=== PATIENT | female | born 1980 | race American Indian/Alaskan Native ===

== ENCOUNTER 2017-01-02 05:52 | Emergency (ER) | payer MEDICAID ==
[2017-01-02 06:15] VITALS: BP 116/69
[2017-01-02] MEDS ORDERED: DECADRON IM ONE (08:02)
[2017-01-02] MEDS ORDERED: BENADRYL PO ONE (08:02)
[2017-01-02] MEDS ORDERED: PEPCID PO ONE (08:02)
--- NOTE | 2017-01-02 09:07 | Emergency Department Report ---
HPI - General Chief Complaint: Eye Problems Time Seen by Provider: 01/02/17 08:00 - HPI HPI: 36-year old female presents today with swelling to her left eye 2 days. Patient states the swelling worsened this morning. Positive for mild irritation and itching of the eye but states it mostly involving the eyelid. Denies injury or trauma. Tried Benadryl without much relief, last dose at 5:30 AM. Positive for green crusting this morning. Denies visual changes. Patient states that she has 2 very pruritic lesions on her back. Denies drainage or bleeding. Denies fever, chills, nausea, vomiting, chest pain, shortness of breath, abdominal pain. Denies difficulty in breathing or difficulty swallowing. ED Past Medical Hx - Past Medical History Previous Medical History?: Yes Hx GERD: Yes Additional medical history: IBS - Surgical History Additional Surgical History: d&c, tubal ligation - Social History Smoking Status: Never Smoker Substance Use Type: Alcohol - Medications Home Medications: Home Medications Medication Instructions Recorded Confirmed Last Taken Type Ibuprofen [Motrin] 800 mg PO TID PRN #30 tab 09/04/13 Unknown Rx metroNIDAZOLE [Flagyl TAB] 1 tab PO BID #20 tablet 09/04/13 Unknown Rx Diphenhydramine HCl [Benadryl 25 mg PO Q6H #20 tablet 01/02/17 Unknown Rx Allergy TAB] Famotidine [Pepcid] 40 mg PO QHS #20 tablet 01/02/17 Unknown Rx Prednisone [predniSONE 10 mg 10 mg PO .TAPER #1 tab.ds.pk 01/02/17 Unknown Rx (6-Day Pack, 21 Tabs)] Sulfamethoxazole/Trimethoprim 1 each PO BID #14 tablet 01/02/17 Unknown Rx [Bactrim DS TAB] ED Review of Systems ROS: Stated complaint: SWOLLEN LF EYE Other details as noted in HPI Constitutional: denies: chills, fever, malaise Eyes: eye discharge, other (eye swelling). denies: eye pain, vision change ENT: denies: ear pain, throat pain, congestion Respiratory: denies: cough, shortness of breath, wheezing Cardiovascular: denies: chest pain, palpitations Endocrine: no symptoms reported Gastrointestinal: denies: abdominal pain, nausea, vomiting Skin: rash, pruritus Neurological: denies: headache, weakness Physical Exam - Physical Exam Vital Signs: Vital Signs 01/02/17 06:10 Temperature 98.7 F Pulse Rate 77 Respiratory 20 Rate Blood Pressure 116/69 O2 Sat by Pulse 98 Oximetry Physical Exam: GENERAL: The patient is well-developed and well-nourished. Patient is in NAD. SKIN: 2 erythematous, pruritic, nontender, blanching, slightly raised, 4 cm in diameter regions noted over her back. No entry point noted. No drainage, fluctuance or bleeding noted. HEAD: Normocephalic. Atraumatic. EYES: Extraocular motions are intact, not painful. PERRL. No proptosis noted. No conjunctival injection noted bilaterally. Positive for periorbital swelling of the left eye, no erythema or tenderness to palpation noted. EARS: External auditory canals and tympanic membranes clear; hearing grossly intact. NOSE: Normal nasal mucosa with no nasal discharge. THROAT: No erythema, swelling or exudates. NECK: Supple, nontender, without lymphadenopathy. CHEST/LUNGS: Clear to auscultation throughout. HEART/CARDIOVASCULAR: Regular rate and rhythm. ABDOMEN: Abdomen is soft, nontender. No guarding or rebound tenderness. EXTREMITIES: Peripheral pulses intact. Capillary refill less than 2 seconds. NEURO: Alert and oriented x 3. Normal gait. VISUAL ACUITY R 20/20 L 20/20 B 20/20 ED Course Vital Signs 01/02/17 06:10 Temperature 98.7 F Pulse Rate 77 Respiratory 20 Rate Blood Pressure 116/69 O2 Sat by Pulse 98 Oximetry ED Medical Decision Making - Lab Data Vital Signs 01/02/17 06:10 Temperature 98.7 F Pulse Rate 77 Respiratory 20 Rate Blood Pressure 116/69 O2 Sat by Pulse 98 Oximetry - Medical Decision Making 36-year-old female presents today with 2 pruritic regions on her back and left sided periorbital edema. Physical exam reveals intact extraocular motions without pain, no erythema or tenderness to palpation left eye, no proptosis and normal visual acuity. The patient was given a Decadron, Benadryl, Pepcid and reports symptomatic relief. Patient has been provided with a referral for ophthalmology. Consulted with Dr. Valdez, who recommended sending patient home on Bactrim with ophthalmology referral. Patient is in no acute distress at this time. She will be discharged home and is encouraged to follow up with a primary care provider. She will be sent home on Bactrim, Benadryl, Pepcid and steroid pack and is encouraged to return to the emergency room for any worsening symptoms. Critical care attestation.: If time is entered above; I have spent that time in minutes in the direct care of this critically ill patient, excluding procedure time. ED Disposition Clinical Impression: Periorbital edema Allergic reaction Qualifiers: Encounter type: initial encounter Qualified Code(s): T78.40XA - Allergy, unspecified, initial encounter Disposition: DISCHARGED TO HOME OR SELFCARE Is pt being admited?: No Does the pt Need Aspirin: No Condition: Stable Instructions: Allergies (ED), Anaphylaxis (ED) Additional Instructions: Follow-up with primary care provider. Return to emergency department if symptoms worsen. Prescriptions: Famotidine [Pepcid] 40 mg PO QHS #20 tablet Diphenhydramine HCl [Benadryl Allergy TAB] 25 mg PO Q6H #20 tablet Prednisone [predniSONE 10 mg (6-Day Pack, 21 Tabs)] 10 mg PO .TAPER #1 tab.ds.pk Sulfamethoxazole/Trimethoprim [Bactrim DS TAB] 1 each PO BID #14 tablet Referrals: DAVID MILLS MD [Primary Care Provider] - 3-5 Days RAMESH VALDEZ MD [Staff Physician] - 3-5 Days [facility] [Outside] - 3-5 Days Forms: Work/School Release Form(ED) Time of Disposition: 09:27
== END 2017-01-02 09:39 | disposition home or self-care (01) ==
LOC: ED 05:52
DX: T78.40XA Allergy, unspecified, initial encounter (principal); H05.222 Edema of left orbit; K21.9 Gastro-esophageal reflux disease without esophagitis; K58.9 Irritable bowel syndrome, unspecified; Z98.51 Tubal ligation status
CPT/HCPCS: 96372; 99283; J1100

== ENCOUNTER 2017-09-12 19:56 | Emergency (ER) | payer MEDICAID, OTHER ==
[2017-09-12 21:21] LABS: Basophils % (Auto) 0.5 % (0.0-1.8); Eosinophils % (Auto) 1.2 % (0.0-4.3); Hematocrit 36.8 % (30.3-42.9); Hemoglobin 12.7 gm/dl (10.1-14.3); Mean Corpuscular HGB Conc 35 % (30-34); Mean Corpuscular Hemoglobin 31 pg (28-32); Mean Corpuscular Volume 91 fl (79-97); Platelet Count 280 K/mm3 (140-440); Red Blood Count 4.04 M/mm3 (3.65-5.03); Red Cell Distribution Width 14.3 % (13.2-15.2); White Blood Count 6.8 K/mm3 (4.5-11.0)
[2017-09-12 21:39] LABS: Anion Gap 17 mmol/L; BUN/Creatinine Ratio 11; Blood Urea Nitrogen 9 mg/dL (7-17); Calcium 9.1 mg/dL (8.4-10.2); Carbon Dioxide 25 mmol/L (22-30); Glucose 88 mg/dL (65-100); Potassium 3.8 mmol/L (3.6-5.0); Sodium 137 mmol/L (137-145)
[2017-09-13] MEDS ORDERED: NACL 0.9% 1000 ML 1,000 ML IV ONE (02:16)
[2017-09-13] MEDS ORDERED: MORPHINE IV ONE (02:17)
[2017-09-13] MEDS ORDERED: ZOFRAN ONE (02:46)
[2017-09-13] MEDS ORDERED: MORPHINE ONE (02:46)
[2017-09-13] MEDS ORDERED: NACL ONE (03:24)
--- NOTE | 2017-09-13 04:42 | Cat Scan Report ---
FINAL REPORT EXAM: CT NECK W CON HISTORY: facial and neck swelling TECHNIQUE: Routine axial imaging was obtained of the soft tissues of the neck extending to the skull base to the thoracic inlet following the intravenous injection of 100 cc of Omnipaque 300. Sagittal and coronal reconstructions were reviewed. FINDINGS: There is minimal reticulation of the subcutaneous fat overlying the right side of the face suggesting mild edema. The parotid and submandibular glands appear normal. There is no evidence of lymphadenopathy in any compartment of the neck. The vascular structures enhance normally bilaterally. The thyroid gland is normal in size and reveals 4.5 millimeter low-attenuation lesion in the left thyroid lobe. The airway appears normal. The skullbase is unremarkable. The sinuses reveal minimal mucosal thickening in the left maxillary sinus. The retropharyngeal space appears normal. The lung apices are clear. The skeletal structures are unremarkable. IMPRESSION: Very mild reticulation of the subcutaneous fat along the right side of the face suggesting mild cellulitis. 4.5 millimeter low-attenuation lesion in the left thyroid lobe. Further evaluation is recommend with outpatient thyroid sonography.
[2017-09-13] MEDS ORDERED: CLEOCIN 900 MG/50 mL 900 MG/50 ML BAG IV ONE (05:21)
[2017-09-13 05:39] VITALS: BP 106/64
--- NOTE | 2017-09-13 05:54 | Emergency Department Report ---
HPI - General Chief Complaint: Chest Pain Time Seen by Provider: 09/13/17 01:43 - HPI HPI: This is a 36-year-old female presents to the emergency department with complaint of some pain and swelling to the bilateral sides of her face. She thinks it could be secondary to some wisdom teeth that need to be removed. However this pain appears to be reading towards her had and towards her chest. She denies any fever, vision change, slurred speech, shortness of breath, nausea, vomiting or diaphoresis. She has not taken anything for her symptoms and presentation. She has a history of IBS. She does not currently have a primary care physician. Recent travel or sick contacts at home. All of the symptoms began this morning. ED Past Medical Hx - Past Medical History Previous Medical History?: No Hx GERD: Yes Additional medical history: IBS - Surgical History Past Surgical History?: Yes Additional Surgical History: d&c, tubal ligation - Social History Smoking Status: Never Smoker Substance Use Type: Alcohol - Medications Home Medications: Home Medications Medication Instructions Recorded Confirmed Last Taken Type Ibuprofen [Motrin] 800 mg PO TID PRN #30 tab 09/04/13 Unknown Rx metroNIDAZOLE [Flagyl TAB] 1 tab PO BID #20 tablet 09/04/13 Unknown Rx Diphenhydramine HCl [Benadryl 25 mg PO Q6H #20 tablet 01/02/17 Unknown Rx Allergy TAB] Famotidine [Pepcid] 40 mg PO QHS #20 tablet 01/02/17 Unknown Rx Sulfamethoxazole/Trimethoprim 1 each PO BID #14 tablet 01/02/17 Unknown Rx [Bactrim DS TAB] HYDROcodone/ACETAMINOPHEN [[place] 1 each PO Q6H PRN #10 tablet 09/13/17 Unknown Rx 5-325 Tablet] Sulfamethoxazole/Trimethoprim 1 each PO BID #14 tablet 09/13/17 Unknown Rx [Bactrim DS TAB] Cetirizine HCl [ZyrTEC] 10 mg PO QAM #5 capsule 09/15/17 Unknown Rx Prednisone [predniSONE 10 mg 10 mg PO .TAPER #1 tab.ds.pk 09/15/17 Unknown Rx (6-Day Pack, 21 Tabs)] diphenhydrAMINE [Benadryl CAP] 50 mg PO BID PRN #12 capsule 09/15/17 Unknown Rx ED Review of Systems ROS: Stated complaint: CHEST PAIN Other details as noted in HPI Comment: All other systems reviewed and negative Constitutional: denies: chills, fever Eyes: denies: eye pain, eye discharge, vision change ENT: throat pain, dental pain, other (facial swelling) Respiratory: denies: cough, shortness of breath, wheezing Cardiovascular: chest pain. denies: palpitations Gastrointestinal: denies: abdominal pain, nausea, diarrhea Genitourinary: denies: urgency, dysuria, discharge Musculoskeletal: denies: back pain, joint swelling, arthralgia Skin: denies: rash, lesions Neurological: headache. denies: weakness, paresthesias Physical Exam - Physical Exam Vital Signs: Vital Signs 09/12/17 09/13/17 09/13/17 20:20 00:01 03:04 Temperature 98.9 F 98.7 F Pulse Rate 98 H 107 H Respiratory 18 18 Rate Blood Pressure 117/72 124/70 Blood Pressure [Right] O2 Sat by Pulse 100 100 Oximetry 09/13/17 09/13/17 05:25 05:32 Temperature 99.3 F Pulse Rate 99 H Respiratory 20 18 Rate Blood Pressure Blood Pressure 106/64 [Right] O2 Sat by Pulse 98 100 Oximetry Physical Exam: GENERAL: The patient is well-developed well-nourished. HENT: Normocephalic. Atraumatic. Patient has moist mucous membranes. Oropharynx is clear. EYES: Extraocular motions are intact. Pupils equal reactive to light bilaterally. NECK: Supple. Trachea is midline. No obvious palpable or visible lymphadenopathy. CHEST/LUNGS: Clear to auscultation. There is no respiratory distress noted. HEART/CARDIOVASCULAR: Regular. There is no tachycardia. There is no gallop rub or murmur. ABDOMEN: Abdomen is soft, nontender. Patient has normal bowel sounds. There is no abdominal distention. SKIN: There is some swelling to the bilateral face around the area of the parotid glands. No obvious erythema, lesions, weeping or drainage. NEURO: The patient is awake, alert, and oriented. The patient is cooperative. The patient has no focal neurologic deficits. The patient has normal speech. MUSCULOSKELETAL: There is no tenderness or deformity. There is no limitation range of motion. There is no evidence of acute injury. ED Course Vital Signs 09/12/17 09/13/17 09/13/17 20:20 00:01 03:04 Temperature 98.9 F 98.7 F Pulse Rate 98 H 107 H Respiratory 18 18 Rate Blood Pressure 117/72 124/70 Blood Pressure [Right] O2 Sat by Pulse 100 100 Oximetry 09/13/17 09/13/17 05:25 05:32 Temperature 99.3 F Pulse Rate 99 H Respiratory 20 18 Rate Blood Pressure Blood Pressure 106/64 [Right] O2 Sat by Pulse 98 100 Oximetry ED Medical Decision Making - Lab Data Result diagrams: 09/12/17 21:08 09/12/17 21:08 - EKG Data -: EKG Interpreted by Me EKG shows normal: sinus rhythm, axis, intervals, QRS complexes, ST-T waves Rate: tachycardia (103 bpm) - EKG Data When compared to previous EKG there are: previous EKG unavailable Interpretation: normal EKG (with mild tachycardia at 103 bpm) - Radiology Data Radiology results: report reviewed, image reviewed interpreted by me: Chest x-ray does not show any acute process. There are no pleural effusions, obvious pneumonia and there is no pneumothorax. XAM: CT NECK W CON HISTORY: facial and neck swelling TECHNIQUE: Routine axial imaging was obtained of the soft tissues of the neck extending to the skull base to the thoracic inlet following the intravenous injection of 100 cc of Omnipaque 300. Sagittal and coronal reconstructions were reviewed. FINDINGS: There is minimal reticulation of the subcutaneous fat overlying the right side of the face suggesting mild edema. The parotid and submandibular glands appear normal. There is no evidence of lymphadenopathy in any compartment of the neck. The vascular structures enhance normally bilaterally. The thyroid gland is normal in size and reveals 4.5 millimeter low-attenuation lesion in the left thyroid lobe. The airway appears normal. The skullbase is unremarkable. The sinuses reveal minimal mucosal thickening in the left maxillary sinus. The retropharyngeal space appears normal. The lung apices are clear. The skeletal structures are unremarkable. IMPRESSION: Very mild reticulation of the subcutaneous fat along the right side of the face suggesting mild cellulitis. 4.5 millimeter low-attenuation lesion in the left thyroid lobe. Further evaluation is recommend with outpatient thyroid sonography. Transcribed By: NING Dictated By: BI JONAS MD Electronically Authenticated By: BI JONAS MD Signed Date/Time: 09/13/17 0040 - Medical Decision Making 36-year-old female presents with some swelling to the bilateral face just in front of and inferior to the ears, sort of over the parotid gland region. Labs are mostly unremarkable. CT was done to rule out abscess or malignancy and it showed possibly some concern for a mild cellulitis. Vital signs stable including being afebrile. Patient will be treated with some antibiotics and encouraged to follow up with the primary care. She'll return to the ER with any worsening of her symptoms or any acute distress. No drooling or trismus. No signs of sepsis. - Differential Diagnosis cellulitis, angioedema, complement deficiency, lupus Critical Care Time: No Critical care attestation.: If time is entered above; I have spent that time in minutes in the direct care of this critically ill patient, excluding procedure time. ED Disposition Clinical Impression: Facial swelling, Facial pain Cellulitis Qualifiers: Site of cellulitis: face Qualified Code(s): L03.211 - Cellulitis of face Disposition: TO HOME OR SELFCARE Is pt being admited?: No Condition: Stable Instructions: Chest Pain (ED), Cellulitis (ED) Additional Instructions: Please follow up with a primary care physician in the next few days. Return to the emergency Department with any worsening of your symptoms or any acute distress. You have been prescribed a medication that is sedating and therefore should not be taken prior to driving, working, and responsible for children and in no way should be mixed with alcohol of any quantity. Prescriptions: HYDROcodone/ACETAMINOPHEN [[place] 5-325 Tablet] 1 each PO Q6H PRN #10 tablet PRN Reason: Pain Sulfamethoxazole/Trimethoprim [Bactrim DS TAB] 1 each PO BID #14 tablet Referrals: DAVID MILLS MD [Primary Care Provider] - 3-5 Days KAMILA LEON MD [Staff Physician] - 3-5 Days [facility] [Outside] - [facility] - [facility]5 Days Time of Disposition: 05:58
--- NOTE | 2017-09-13 07:45 | XRay Report ---
AP CHEST: HISTORY: chest pain AP view of the chest demonstrates a normal mediastinal and cardiac contour with clear lungs and normal bony and soft tissue structures. IMPRESSION: Unremarkable AP chest.
== END 2017-09-13 06:16 | disposition home or self-care (01) ==
LOC: ED 19:56
DX: L03.211 Cellulitis of face (principal); K21.9 Gastro-esophageal reflux disease without esophagitis; Z98.51 Tubal ligation status
CPT/HCPCS: 36415; 70491; 71010; 80048; 81025; 84484; 85025; 87116; 87430; 93005; 93010; 96361; 96365; 96375; 99285; J2270; J7030; Q9967; J2405

== ENCOUNTER 2017-09-15 07:48 | Emergency (ER) | payer OTHER ==
[2017-09-15 08:24] VITALS: BP 114/69
[2017-09-15] MEDS ORDERED: BENADRYL IV ONE (11:15)
[2017-09-15] MEDS ORDERED: TORADOL IV ONE (11:16)
--- NOTE | 2017-09-15 11:19 | Emergency Department Report ---
HPI - General Chief Complaint: Sore Throat Time Seen by Provider: 09/15/17 11:05 - HPI HPI: Patient here reports that she was seen here 4 days ago for the same problem complain and neck and throat swelling. She says she was diagnosis: The face, cellulitis to throat pain and was prescribed hydrocodone and Bactrim. Patient states that she has not completed prescription and she is returning today because she is having neck and throat swelling. Denies any shortness of breath. Denies any cough or chest pain. Denies any wheezing or stridor. Patient's that she did not take her temperature but she feels like she has a fever. She said her pain is 10 out of 10 and achy. She reports that pain medication help her pain but he didn't take the solid way. ED Past Medical Hx - Past Medical History Previous Medical History?: Yes Hx GERD: Yes Additional medical history: IBS, Throat and neck pain, Abnormal cervical cells - Surgical History Past Surgical History?: Yes Additional Surgical History: d&c, tubal ligation - Family History Family history: no significant, hypertension - Social History Smoking Status: Never Smoker Substance Use Type: Alcohol, Prescribed Other Social History: Lives with family - Medications Home Medications: Home Medications Medication Instructions Recorded Confirmed Last Taken Type Ibuprofen [Motrin] 800 mg PO TID PRN #30 tab 09/04/13 Unknown Rx metroNIDAZOLE [Flagyl TAB] 1 tab PO BID #20 tablet 09/04/13 Unknown Rx Diphenhydramine HCl [Benadryl 25 mg PO Q6H #20 tablet 01/02/17 Unknown Rx Allergy TAB] Famotidine [Pepcid] 40 mg PO QHS #20 tablet 01/02/17 Unknown Rx Sulfamethoxazole/Trimethoprim 1 each PO BID #14 tablet 01/02/17 Unknown Rx [Bactrim DS TAB] HYDROcodone/ACETAMINOPHEN [[place] 1 each PO Q6H PRN #10 tablet 09/13/17 Unknown Rx 5-325 Tablet] Sulfamethoxazole/Trimethoprim 1 each PO BID #14 tablet 09/13/17 Unknown Rx [Bactrim DS TAB] Cetirizine HCl [ZyrTEC] 10 mg PO QAM #5 capsule 09/15/17 Unknown Rx Prednisone [predniSONE 10 mg 10 mg PO .TAPER #1 tab.ds.pk 09/15/17 Unknown Rx (6-Day Pack, 21 Tabs)] diphenhydrAMINE [Benadryl CAP] 50 mg PO BID PRN #12 capsule 09/15/17 Unknown Rx ED Review of Systems ROS: Stated complaint: NECK AND THROAT SWOLLEN Other details as noted in HPI Comment: All other systems reviewed and negative Constitutional: denies: chills ENT: throat pain, other (neck swelling/Facial swelling). denies: ear pain, dental pain, congestion Respiratory: no symptoms reported Cardiovascular: denies: chest pain, palpitations, dyspnea on exertion, orthopnea , edema, syncope, paroxysmal nocturnal dyspnea Gastrointestinal: denies: abdominal pain, nausea, vomiting, diarrhea, constipation, hematemesis Genitourinary: denies: urgency, dysuria, frequency, hematuria, discharge Musculoskeletal: arthralgia. denies: back pain, joint swelling, myalgia Skin: denies: rash Neurological: denies: headache, numbness, paresthesias, confusion Physical Exam - Physical Exam Vital Signs: Vital Signs 09/15/17 08:18 Temperature 99.5 F Pulse Rate 66 Respiratory 18 Rate Blood Pressure 114/69 O2 Sat by Pulse 100 Oximetry General: This is a 36-year-old female well-nourished well-developed in no acute distress Physical Exam: Head: Normocephalic, atraumatic, no abrasion, no bruising and no contusion. Eyes: Biateral pupils equal and reactive to light, bilateral EOM intact.. Bilateral conjunctival and sclera without injection, normal accommodation. No nystagmus Mouth: Moist, no pharyngeal exudate or erythema. No peritonsillar abscess. No tonsillar enlargement. Tongue is normal. Uvula is midline. No trismus. Mild facial swelling. Lips without swelling. No facial erythema noted Neurological: GCS at 15, Pt is alert and oriented 3 speech is clear period. Bilateral hand mechanics supervisor strong and equal. Normal gait. Negative Romberg and no pronator drift. Normal Reflexes. No motor or sensory deficit Neck: Supple, No Cervical adenopathy, full range of motion and no C-spine tenderness. No swelling or tracheal deviation normal reflexes Back: No vertebral tenderness, no paraspinal tenderness. Ambulates without any difficulties. Cardiovascular: S1, S2. Regular rate and rhythm. No murmur. Capillary refill is less then 3 seconds. Lungs: Clear to auscultate bilaterally. No rhonchi, wheezes or rales. No chest wall tenderness, no stridor and normal work of breathing MSK: Strength 5/5 in all extremities. No joint deformity or crepitus. Normal inspection. Full range of motion to all extremities Extremities: No clubbing, cyanosis or edema. +2 pulses. No neurovascular compromise Skin: Clean, dry and intact. No rash or lesions. ED Course Vital Signs 09/15/17 08:18 Temperature 99.5 F Pulse Rate 66 Respiratory 18 Rate Blood Pressure 114/69 O2 Sat by Pulse 100 Oximetry - Reevaluation(s) Reevaluation #1: 09/15/17 13:22 Patient had Solu-Medrol 125 mg IV, Toradol 30 mg IV and Benadryl 50 mg IV and she says she feels better. She cannot identify anything this new nerve in her vitamin debts causing her to have facial swelling. CTA of the neck was normal ED Medical Decision Making - Lab Data Result diagrams: 09/15/17 11:34 09/15/17 11:34 Lab Results 09/15/17 09/15/17 09/15/17 Range/Units 11:34 11:34 11:34 WBC 4.7 (4.5-11.0) K/mm3 RBC 4.07 (3.65-5.03) M/mm3 Hgb 12.3 (10.1-14.3) gm/dl Hct 37.6 (30.3-42.9) % MCV 92 (79-97) fl MCH 30 (28-32) pg MCHC 33 (30-34) % RDW 14.4 (13.2-15.2) % Plt Count 245 (140-440) K/mm3 Lymph % (Auto) 35.0 (13.4-35.0) % Ellis % (Auto) 8.9 H (0.0-7.3) % Eos % (Auto) 0.1 (0.0-4.3) % Baso % (Auto) 0.5 (0.0-1.8) % Lymph # 1.6 (1.2-5.4) K/mm3 Ellis # 0.4 (0.0-0.8) K/mm3 Eos # 0.0 (0.0-0.4) K/mm3 Baso # 0.0 (0.0-0.1) K/mm3 Seg Neutrophils % 55.5 (40.0-70.0) % Seg Neutrophils # 2.6 (1.8-7.7) K/mm3 Sodium 136 L (137-145) mmol/L Potassium 4.1 (3.6-5.0) mmol/L Chloride 99.3 (98-107) mmol/L Carbon Dioxide 24 (22-30) mmol/L Anion Gap 17 mmol/L BUN 8 (7-17) mg/dL Creatinine 0.8 (0.7-1.2) mg/dL Estimated GFR > 60 ml/min BUN/Creatinine Ratio 10 % Glucose 75 (65-100) mg/dL Calcium 8.3 L (8.4-10.2) mg/dL Total Bilirubin 0.20 (0.1-1.2) mg/dL Direct Bilirubin < 0.2 (0-0.2) mg/dL Indirect Bilirubin 0.0 mg/dL AST 19 (5-40) units/L ALT 11 (7-56) units/L Alkaline Phosphatase 54 (35-129) units/L C-Reactive Protein 0.70 (0.00-1.30) mg/dL Total Protein 7.3 (6.3-8.2) g/dL Albumin 3.7 L (3.9-5) g/dL Albumin/Globulin Ratio 1.0 % HCG, Qual (Negative) 09/15/17 Range/Units 11:34 WBC (4.5-11.0) K/mm3 RBC (3.65-5.03) M/mm3 Hgb (10.1-14.3) gm/dl Hct (30.3-42.9) % MCV (79-97) fl MCH (28-32) pg MCHC (30-34) % RDW (13.2-15.2) % Plt Count (140-440) K/mm3 Lymph % (Auto) (13.4-35.0) % Ellis % (Auto) (0.0-7.3) % Eos % (Auto) (0.0-4.3) % Baso % (Auto) (0.0-1.8) % Lymph # (1.2-5.4) K/mm3 Ellis # (0.0-0.8) K/mm3 Eos # (0.0-0.4) K/mm3 Baso # (0.0-0.1) K/mm3 Seg Neutrophils % (40.0-70.0) % Seg Neutrophils # (1.8-7.7) K/mm3 Sodium (137-145) mmol/L Potassium (3.6-5.0) mmol/L Chloride (98-107) mmol/L Carbon Dioxide (22-30) mmol/L Anion Gap mmol/L BUN (7-17) mg/dL Creatinine (0.7-1.2) mg/dL Estimated GFR ml/min BUN/Creatinine Ratio % Glucose (65-100) mg/dL Calcium (8.4-10.2) mg/dL Total Bilirubin (0.1-1.2) mg/dL Direct Bilirubin (0-0.2) mg/dL Indirect Bilirubin mg/dL AST (5-40) units/L ALT (7-56) units/L Alkaline Phosphatase (35-129) units/L C-Reactive Protein (0.00-1.30) mg/dL Total Protein (6.3-8.2) g/dL Albumin (3.9-5) g/dL Albumin/Globulin Ratio % HCG, Qual Negative (Negative) - Radiology Data Radiology results: report reviewed CTA neck with normal results. Please refer to report for detailed information - Medical Decision Making ED course: She presents to the emergency room today with complaints of facial swelling and throat swelling with pain at 10 out of 10. She was seen here on for similar problems that she was placed on Bactrim DS [place] 5. She says she did not take the Bactrim or did not complete it because she didn't feel like she needs it. Physical findings for mild facial swelling bilaterally without any signs of cellulitis. Exam was normal without any peritonsillar abscess and her airways patent. Neck exam is normal. PA neck reveals normal findings. Patient was given Toradol 30 mg IV, Benadryl 50 mg IV and Solu- Medrol 125 mg IV which she said she felt better after medication. I explained her lab results and CT scan result with patient. Her albumin was slightly decreased, calcium slightly decreased and sodium of 136 slightly decreased. Please refer to the laboratory section for details on laboratory results. Her that she needs to drink some Gatorade today per his sodium back up and eat more protein. I also discussed with her that she will need to follow up with a primary care physician. I told her she does not have a primary care physician and she is given a half to follow-up with [facility] or [facility] in 2days. Discharged home with her family in stable condition Critical care attestation.: If time is entered above; I have spent that time in minutes in the direct care of this critically ill patient, excluding procedure time. ED Disposition Clinical Impression: Facial swelling, Hypoalbuminemia, Hypocalcemia, Hyponatremia Pharyngitis Qualifiers: Pharyngitis/tonsillitis etiology: unspecified etiology Qualified Code(s): J02.9 - Acute pharyngitis, unspecified Disposition: TO HOME OR SELFCARE Is pt being admited?: No Does the pt Need Aspirin: No Condition: Stable Instructions: Allergies (ED), Pharyngitis (ED), Hyponatremia (ED), High Protein Diet (ED), Hypocalcemia (ED) Additional Instructions: Return to the emergency room [facility] if your condition worsens otherwise follow up with primary care physician as recommended. Take Medrol Dosepak and Benadryl as prescribed Increase your fluid intake Drink Gatorade and this will help to increase his sodium level Please increase her protein intake Please incorporate daily multivitamin in your diet. Your calcium level is low so you're been a need to take calcium supplement which is included and daily multivitamin Your protein was also low so you'll also need to eat foods high in protein. You can take Zyrtec during the day Do not drive or operate heavy machinery while taking Benadryl as this medication will cause drowsiness Prescriptions: Cetirizine HCl [ZyrTEC] 10 mg PO QAM #5 capsule diphenhydrAMINE [Benadryl CAP] 50 mg PO BID PRN #12 capsule PRN Reason: Allergy Symptoms Prednisone [predniSONE 10 mg (6-Day Pack, 21 Tabs)] 10 mg PO .TAPER #1 tab.ds.pk Referrals: PRIMARY CARE, [Primary Care Provider] - 09/17/17 [facility] [Outside] - 09/17/17 [facility] [Outside] - 09/17/17 Forms: Accompanied Note, Work/School Release Form(ED)
[2017-09-15 11:55] LABS: Basophils % (Auto) 0.5 % (0.0-1.8); Eosinophils % (Auto) 0.1 % (0.0-4.3); Hematocrit 37.6 % (30.3-42.9); Hemoglobin 12.3 gm/dl (10.1-14.3); Mean Corpuscular HGB Conc 33 % (30-34); Mean Corpuscular Hemoglobin 30 pg (28-32); Mean Corpuscular Volume 92 fl (79-97); Platelet Count 245 K/mm3 (140-440); Red Blood Count 4.07 M/mm3 (3.65-5.03); Red Cell Distribution Width 14.4 % (13.2-15.2); White Blood Count 4.7 K/mm3 (4.5-11.0)
[2017-09-15] MEDS ORDERED: NACL ONE (12:21)
[2017-09-15 12:28] LABS: Alanine Aminotransferase 11 units/L (7-56); Albumin 3.7 g/dL (3.9-5); Alkaline Phosphatase 54 units/L (35-129); Total Protein 7.3 g/dL (6.3-8.2)
[2017-09-15 12:29] LABS: Anion Gap 17 mmol/L; BUN/Creatinine Ratio 10; Bilirubin,Direct < 0.2 mg/dL (0-0.2); Blood Urea Nitrogen 8 mg/dL (7-17); Calcium 8.3 mg/dL (8.4-10.2); Carbon Dioxide 24 mmol/L (22-30); Chloride 99.3 mmol/L (98-107); Glucose 75 mg/dL (65-100); Potassium 4.1 mmol/L (3.6-5.0); Sodium 136 mmol/L (137-145)
--- NOTE | 2017-09-15 12:53 | Cat Scan Report ---
CTA of neck with post processing using the MIP and MPR technique. IV contrast was injected. History: Neck and facial swelling. Findings: The origin of right and left common carotid arteries, origin of the left and right subclavian arteries and origin right and left vertebral arteries is normal.. There is no evidence of stenosis or occlusion or dissection noted along the origin and course of the common carotid arteries, internal carotid arteries and the vertebral arteries. The bulb and the origin of the right and left internal carotid appears normal. Impression: Essentially negative CTA of neck.
== END 2017-09-15 14:24 | disposition home or self-care (01) ==
LOC: ED 07:48
DX: J02.9 Acute pharyngitis, unspecified (principal); E88.09 Other disorders of plasma-protein metabolism, not elsewhere classified; E83.51 Hypocalcemia; E87.1 Hypo-osmolality and hyponatremia; R22.0 Localized swelling, mass and lump, head; K21.9 Gastro-esophageal reflux disease without esophagitis; Z98.51 Tubal ligation status
CPT/HCPCS: 36415; 70498; 80048; 80074; 84703; 85025; 86140; 96374; 96375; 99284; J1200; J1885; J2930; Q9967

== ENCOUNTER 2018-01-01 21:06 | Emergency (ER) | payer SELFPAY ==
[2018-01-01 21:47] VITALS: BP 126/72
[2018-01-01] MEDS ORDERED: ASPIRIN PO ONE (21:47)
[2018-01-01 22:20] LABS: Basophils % (Auto) 0.4 % (0.0-1.8); Eosinophils # (Auto) 0.1 K/mm3 (0.0-0.4); Eosinophils % (Auto) 1.4 % (0.0-4.3); Hematocrit 36.8 % (30.3-42.9); Hemoglobin 12.3 gm/dl (10.1-14.3); Lymphocytes # (Auto) 2.3 K/mm3 (1.2-5.4); Lymphocytes % (Auto) 24.4 % (13.4-35.0); Mean Corpuscular HGB Conc 33 % (30-34); Mean Corpuscular Hemoglobin 31 pg (28-32); Mean Corpuscular Volume 93 fl (79-97); Monocytes # (Auto) 0.6 K/mm3 (0.0-0.8); Monocytes % (Auto) 5.8 % (0.0-7.3); Platelet Count 317 K/mm3 (140-440); Red Blood Count 3.96 M/mm3 (3.65-5.03); Red Cell Distribution Width 14.1 % (13.2-15.2)
[2018-01-01 22:37] LABS: BUN/Creatinine Ratio 21; Blood Urea Nitrogen 17 mg/dL (7-17); Calcium 9.2 mg/dL (8.4-10.2); Hemolysis Index 2
[2018-01-02 04:00] LABS: Bilirubin,Urine NEG (Negative); Blood,Urine NEG (Negative); Color,Urine Yellow (Yellow); Mucus,Urine FEW /HPF; Nitrite,Urine NEG (Negative); Protein,Urine <15 mg/dL mg/dL (Negative); Urobilinogen,Urine < 2.0 mg/dL (<2.0)
== END 2018-01-01 23:25 | disposition left against medical advice (07) ==
LOC: ED 21:06
DX: M79.604 Pain in right leg (principal); Z53.21 Procedure and treatment not carried out due to patient leaving prior to being seen by health care provider
CPT/HCPCS: 36415; 80048; 81001; 84484; 84703; 85025; 93005; 93010

== ENCOUNTER → 2018-04-22 16:08 | Emergency (ER) | payer SELFPAY | END | disposition left against medical advice (07) | LOC: ED 16:08 | DX: R07.9 Chest pain, unspecified (principal); R51 Headache; M79.605 Pain in left leg; Z53.21 Procedure and treatment not carried out due to patient leaving prior to being seen by health care provider ==

== ENCOUNTER 2019-11-03 16:42 | Emergency (ER) | payer SELFPAY ==
[2019-11-03] MEDS ORDERED: SODIUM CHLORIDE 0.9% 1000 ML 0 ML ONE (20:23)
== END 2019-11-03 18:07 | disposition left against medical advice (07) ==
LOC: ED 16:42
DX: J02.9 Acute pharyngitis, unspecified (principal); Z53.21 Procedure and treatment not carried out due to patient leaving prior to being seen by health care provider
CPT/HCPCS: J7030

== ENCOUNTER 2022-03-23 06:34 | Day surgery (SDC) | payer OTHER ==
[~2022-03-23 06:34] MED LIST: ceFAZolin/STERILE WATER 2 GM/20 ML SYRINGE IV NR
[2022-03-23] MEDS ORDERED: LACTATED RINGERS 1,000 ML ONE (07:24)
[2022-03-23] MEDS ORDERED: SUCCINYLCHOLINE CHLORIDE 200 MG/10 ML INJ MDV ONE (08:00)
[2022-03-23] MEDS ORDERED: LIDOCAINE PF 100 MG/5 ML (CARDIAC SYRINGE) IV ONE (08:00)
[2022-03-23] MEDS ORDERED: fentaNYL 100 MCG/2 ML INJ ONE (08:00)
[2022-03-23] MEDS ORDERED: ONDANSETRON 4 MG/2 ML INJ ONE (08:00)
[2022-03-23] MEDS ORDERED: propofoL 200 MG/20 ML VIAL IV ONE (08:01)
--- NOTE | 2022-03-23 08:10 | Anesthesia Day of Surgery ---
Anesthesia Day of Surgery - Day of Surgery Patient Examined: Yes Patient H&P Reviewed: Yes Patient is NPO: Yes
--- NOTE | 2022-03-23 08:10 | Anesthesia Consultation ---
Anesthesia Consult and Med Hx Date of service: 03/23/22 - Airway Anesthetic Teeth Evaluation: Caps ROM Head & Neck: Adequate Mental/Hyoid Distance: Adequate Mallampati Class: Class II Intubation Access Assessment: Good - Pre-Operative Health Status ASA Pre-Surgery Classification: ASA2 Proposed Anesthetic Plan: General - Pulmonary Hx Smoking: No - Central Nervous System Hx Psychiatric Problems: Yes (Anxiety) - Hematic Hx Anemia: Yes Hx Sickle Cell Disease: No - Other Systems Hx Alcohol Use: Yes (OCCASSIONALLY) Hx Substance Use: No Hx Cancer: No Hx Obesity: No
[2022-03-23] MEDS ORDERED: BUPIVACAINE/PF (0.5%) 5 MG/1 ML 30 ML VIAL INFILTRATI ONE (08:27)
[2022-03-23] MEDS ORDERED: LIDOCAINE (1%) 10 MG/1 ML VIAL 20 ML MDV ONE (08:27)
[2022-03-23] MEDS ORDERED: DIBUCAINE 1% OINT 28 GM ONE (08:27)
[2022-03-23] MEDS ORDERED: LIDOCAINE 2%/EPINEPHRINE 1:200,000 VIAL (20 ML) INFILTRATI ONE (08:27)
[2022-03-23] MEDS ORDERED: HYDROmorphone 1 MG/1 ML INJ IV PRN ×2 (08:30)
[2022-03-23] MEDS ORDERED: ONDANSETRON 4 MG/2 ML INJ IV PRN (08:30)
[2022-03-23] MEDS ORDERED: ROCURONIUM 50 MG/5 ML INJ IV ONE (08:50)
[2022-03-23] MEDS ORDERED: PE/MO/PET,WH 10 APPLIC/28 GM TUBE PR SCH (09:00)
[2022-03-23] MEDS ORDERED: LACTATED RINGERS 1,000 ML IV SCH (09:00)
[2022-03-23] MEDS ORDERED: MIDAZOLAM 2 MG/2 ML INJ IV NR (09:00)
[2022-03-23] MEDS ORDERED: GLYCOPYRROLATE 0.4 MG/2 ML INJ ONE (09:36)
[2022-03-23] MEDS ORDERED: NEOSTIGMINE 10MG/10 ML INJ MDV ONE (09:36)
--- NOTE | 2022-03-23 09:47 | Operative Report ---
Operative Report Operative Report: Date of procedure: 03/23/2022 Preoperative diagnosis: Internal and external hemorrhoids Postop diagnosis: Same Procedure: Transanal dearterialization and hemorrhoidal pexy Surgeon: Dr. Coronado Manager Utility: Dr. Vasquez Estimated blood loss: Minimal Specimen: None Anesthesia: General endotracheal anesthesia Position: Prone Findings: Patient is taken to the OR where timeouts and consents were needed and noted to be on the chart. The patient is in a prone position with the buttocks taped apart. The anus and perianal area were prepped with pHisoHex and draped in a sterile fashion. Rectal exam is performed. The Doppler anoscope was then used to identify hemorrhoidal arteries at 1, 3, 5, 7, 9, and 11:00 positions. 2-0 Vicryl was used to do the dearterialization in each of these positions. Hemorrhoidal pexy was performed at each of these positions as well. An intersphincteric nerve block was then performed with half percent Marcaine and 1% lidocaine with epi. Gelfoam soaked in the anesthetic solution is sent placed at the anal verge. The. Procedure was then ended.
--- NOTE | 2022-03-23 09:52 | Short Stay Summary ---
Short Stay Documentation Date of service: 03/23/22 - History H&P: obtained from office - Allergies and Medications Current Medications: Allergies latex Allergy (Verified 03/17/22 15:11) Itching Penicillins Allergy (Verified 03/17/22 15:11) Shortness of Breath shellfish derived Allergy (Verified 03/17/22 15:11) Itching Home Medications Medication Instructions Recorded Confirmed Last Taken Type Ferrous Sulfate [Iron 325 MG] 325 mg PO DAILY 03/17/22 03/17/22 Unknown History Linaclotide [Linzess] 72 mcg PO DAILY 03/17/22 03/17/22 Unknown History Phentermine HCl 37.5 mg PO DAILY 03/17/22 03/17/22 Unknown History Active Medications Cefazolin Sodium (Cefazolin/Sterile Water 2 Gm/20 Ml Syringe) 2 gm IV PREOP NR Stop: 03/23/22 23:59 Hydromorphone HCl (Hydromorphone 1 Mg/1 Ml Inj) 0.25 mg IV Q10MIN PRN PRN Reason: Pain, Moderate (4-6) Stop: 03/23/22 17:00 Hydromorphone HCl (Hydromorphone 1 Mg/1 Ml Inj) 0.5 mg IV Q10MIN PRN PRN Reason: Pain , Severe (7-10) Stop: 03/23/22 17:00 Lactated Ringer's (Lactated Ringers) 1,000 mls @ 125 mls/hr IV DIRECT CECY Midazolam HCl (Midazolam 2 Mg/2 Ml Inj) 2 mg IV PREOP NR Stop: 03/23/22 23:59 Ondansetron HCl (Ondansetron 4 Mg/2 Ml Inj) 4 mg IV ONCE PRN PRN Reason: Nausea And Vomiting Stop: 03/23/22 17:00 Phenyleph/Shark Oil/Min Oil/Petrol (Pe/Mo/Pet,Wh 10 Applic/28 Gm Tube) 1 applic [place] ONCE CECY Stop: 03/23/22 15:00 - Physical exam General appearance: no acute distress Integumentary: no rash Heart: Regular rate Gastrointestinal: normal, normoactive bowel sounds Rectal Exam: hemorrhoids (With prolapse) - Brief post op/procedure progress note Date of procedure: 03/23/22 Pre-op diagnosis: Hemorrhoids with prolapse Post-op diagnosis: same Procedure: Transanal dearterialization and hemorrhoidal pexy of hemorrhoids Anesthesia: ASHUTOSHA Surgeon: NIGEL BENEDICT Estimated blood loss: minimal Pathology: none Condition: stable - Disposition Condition at discharge: Good Disposition: 01 HOME / SELF CARE / HOMELESS - Discharge Diagnoses (1) Hemorrhoid prolapse Status: Chronic Short Stay Discharge Plan Activity: no restrictions Weight Bearing Status: Non-Weight Bearing Diet: regular Wound: other (Sitz bath's 3 times daily and as needed) Special Instructions: other (Mineral oil 1 tablespoon p.o. 3 times daily and Colace 1 tablet p.o. 3 times daily for 10 days) Follow up with: PRIMARY CARE, [Primary Care Provider] - 7 Days
[2022-03-23] MEDS ORDERED: oxyCODONE /ACETAMINOPHEN 5-325MG TAB PO PRN (11:00)
[2022-03-23 14:52] VITALS: BP 117/54
--- NOTE | 2022-03-23 14:55 | Post Anesthesia Evaluation ---
- Post Anesthesia Evaluation Patient Participated: Yes Airway Patent: Yes Stable Respiratory Function: Yes Nausea/Vomiting: No Temp > 96.8F: Yes Pain Manageable: Yes Adequeate Hydration: Yes Anesthesia Complications: No Block Receding Appropriately: Not Applicable Patient on Ventilator: No
== END 2022-03-23 11:30 | disposition home or self-care (01) ==
LOC: OR 06:34
PROVIDERS: ATTEND Surgery
DX: K64.8 Other hemorrhoids (principal); K64.4 Residual hemorrhoidal skin tags; K21.9 Gastro-esophageal reflux disease without esophagitis; M19.90 Unspecified osteoarthritis, unspecified site; F41.9 Anxiety disorder, unspecified; Z91.040 Latex allergy status; Z79.899 Other long term (current) drug therapy; Z98.51 Tubal ligation status; Z87.440 Personal history of urinary (tract) infections; Z91.013 Allergy to seafood; Z72.89 Other problems related to lifestyle; Z88.0 Allergy status to penicillin; Z98.890 Other specified postprocedural states; Z86.2 Personal history of diseases of the blood and blood-forming organs and certain disorders involving the immune mechanism
CPT/HCPCS: 46948; 93005; J0330; J0690; J1815; J2001; J2250; J2405; J2704; J2710; J3010; J3490; J7120; 81001; 81025

== ENCOUNTER 2022-03-23 20:30 | Emergency (ER) | payer OTHER ==
[2022-03-23 21:04] VITALS: BP 116/72
[2022-03-24 03:44] LABS: Bilirubin,Urine NEG (Negative); Blood,Urine NEG (Negative); Color,Urine Colorless (Yellow); Mucus,Urine FEW /HPF; Protein,Urine <15 mg/dL mg/dL (Negative); RBC,Urine < 1.0 /HPF (0.0-6.0); Urobilinogen,Urine < 2.0 mg/dL (<2.0)
[2022-03-24 03:45] LABS: HCG Qualitative,Urine Negative (Negative)
--- NOTE | 2022-03-24 10:15 | Electrocardiograph Report ---
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
== END 2022-03-24 02:01 | disposition left against medical advice (07) ==
LOC: ED 20:30
DX: R30.0 Dysuria (principal); Z53.21 Procedure and treatment not carried out due to patient leaving prior to being seen by health care provider
CPT/HCPCS: 81001; 81025; 93005

== ENCOUNTER 2022-07-03 13:50 | Emergency (ER) | payer OTHER ==
[2022-07-03 15:32] LABS: Bacteria,Urine 1+ /HPF (Negative)
[2022-07-03 15:41] LABS: Bilirubin,Urine Negative (Negative); Blood,Urine Negative (Negative); Color,Urine Colorless (Yellow); Protein,Urine <15 mg/dL mg/dL (Negative)
[2022-07-03 15:42] LABS: HCG Qualitative,Urine Negative (Negative); Urobilinogen,Urine < 2.0 mg/dL (<2.0)
[2022-07-03 16:24] LABS: Alanine Aminotransferase 13 units/L (7-56); Albumin 4.7 g/dL (3.9-5); BUN/Creatinine Ratio 9; Blood Urea Nitrogen 8 mg/dL (7-17); Calcium 9.3 mg/dL (8.4-10.2); Hemolysis Index 3
--- NOTE | 2022-07-03 16:29 | Emergency Department Report ---
ED Female HPI - General Chief complaint: Abdominal Pain Stated complaint: PAIN IN LEFT SIDE AND PELVIC AREA Time Seen by Provider: 07/03/22 14:59 Source: patient Mode of arrival: Ambulatory Limitations: No Limitations - History of Present Illness Initial comments: 41-year-old female with history of IBS, ovarian cyst, fibroids, presents with left flank pain pelvic pain. Patient reports pain started in her left lower back radiates to the left flank area in her pelvic area since Sunday. Progressively gotten worse without improvement. Symptoms associated with nausea, gassy, no vomiting, no diarrhea, no dysuria, no vaginal discharge, no fever or chills. She denies being . Last bowel movement today Pain is does not radiate to her extremities her upper back, no upper abdominal pain, no vomiting, no sick contacts or recent travel. MD Complaint: pelvic pain -: Gradual, days(s) Radiation: LLQ, L flank Severity: moderate Severity scale (0 -10): 8 Quality: sharp, stabbing Consistency: intermittent Improves with: none Worsens with: none Are you Now?: No Associated Symptoms: abdominal pain, nausea/vomiting. denies: vaginal discharge, vaginal bleeding, fever/chills, headaches, loss of appetite, dysuria, shortness of breath, syncope, weakness - Related Data Sexually active: Yes Home Medications Medication Instructions Recorded Confirmed Last Taken Ferrous Sulfate [Iron 325 MG] 325 mg PO DAILY 03/17/22 03/17/22 Unknown Linaclotide [Linzess] 72 mcg PO DAILY 03/17/22 03/17/22 Unknown Phentermine HCl 37.5 mg PO DAILY 03/17/22 03/17/22 Unknown Previous Rx's Medication Instructions Recorded Last Taken Type Hyoscyamine Subl [Levsin Sl 0.125 0.125 mg SL Q6HR PRN #20 tab 07/03/22 Unknown Rx TAB] Naproxen Sodium [Naproxen Sodium 550 mg PO BID PRN #20 07/03/22 Unknown Rx 550mg] Ondansetron [Zofran Odt] 4 mg PO Q8HR PRN #12 tab.rapdis 07/03/22 Unknown Rx Allergies Allergy/AdvReac Type Severity Reaction Status Date / Time latex Allergy Itching Verified 03/17/22 15:11 Penicillins Allergy Shortness Verified 03/17/22 15:11 of Breath shellfish derived Allergy Itching Verified 03/17/22 15:11 ED Review of Systems ROS: Stated complaint: PAIN IN LEFT SIDE AND PELVIC AREA Other details as noted in HPI Constitutional: denies: chills, fever Cardiovascular: denies: chest pain, palpitations Gastrointestinal: nausea. denies: abdominal pain, vomiting, constipation Genitourinary: denies: urgency, dysuria Musculoskeletal: back pain. denies: joint swelling Skin: denies: rash, lesions ED Past Medical Hx - Past Medical History Hx GERD: Yes Hx Sickle Cell Disease: No Hx Arthritis: Yes (RIGHT KNEE) Hx HIV: No Additional medical history: IBS, Throat and neck pain, Abnormal cervical cells - Surgical History Additional Surgical History: d&c, tubal ligation - Social History Smoking Status: Never Smoker - Medications Home Medications: Home Medications Medication Instructions Recorded Confirmed Last Taken Type Ferrous Sulfate [Iron 325 MG] 325 mg PO DAILY 03/17/22 03/17/22 Unknown History Linaclotide [Linzess] 72 mcg PO DAILY 03/17/22 03/17/22 Unknown History Phentermine HCl 37.5 mg PO DAILY 03/17/22 03/17/22 Unknown History Hyoscyamine Subl [Levsin Sl 0.125 0.125 mg SL Q6HR PRN #20 tab 07/03/22 Unknown Rx TAB] Naproxen Sodium [Naproxen Sodium 550 mg PO BID PRN #20 07/03/22 Unknown Rx 550mg] Ondansetron [Zofran Odt] 4 mg PO Q8HR PRN #12 tab.rapdis 07/03/22 Unknown Rx ED Physical Exam - General Limitations: No Limitations General appearance: alert, in no apparent distress - Head Head exam: Absent: atraumatic - Eye Eye exam: Present: normal appearance, PERRL Pupils: Present: normal accommodation - ENT ENT exam: Present: normal exam, normal orophraynx - Neck Neck exam: Present: normal inspection - Respiratory Respiratory exam: Present: normal lung sounds bilaterally. Absent: respiratory distress, wheezes - Cardiovascular Cardiovascular Exam: Present: regular rate, normal rhythm - GI/Abdominal GI/Abdominal exam: Present: soft, tenderness (LLQ), normal bowel sounds, other (LCVAT). Absent: distended - Back Exam Back exam: Present: normal inspection, full ROM, CVA tenderness (L) - Neurological Exam Neurological exam: Present: alert, oriented X3, normal gait - Psychiatric Psychiatric exam: Present: normal affect, normal mood - Skin Skin exam: Present: warm, dry, intact, normal color ED Course Vital Signs 07/03/22 07/03/22 14:41 18:10 Temperature 97.9 F 98.1 F Pulse Rate 88 66 Respiratory 20 16 Rate Blood Pressure 118/85 121/87 [Right] O2 Sat by Pulse 100 98 Oximetry ED Medical Decision Making - Lab Data Result diagrams: 07/03/22 15:26 07/03/22 15:26 Laboratory Results - last 24 hr 07/03/22 07/03/22 07/03/22 05:21 15:26 15:26 WBC 5.7 RBC 4.54 Hgb 13.5 Hct 41.4 MCV 91 MCH 30 MCHC 33 RDW 19.1 H Plt Count 295 Lymph % (Auto) 28.8 [place] % (Auto) 5.3 Eos % (Auto) 1.0 Baso % (Auto) 0.4 Lymph # (Auto) 1.6 [place] # (Auto) 0.3 Eos # (Auto) 0.1 Baso # (Auto) 0.0 Seg Neutrophils % 64.5 Seg Neutrophils # 3.7 Sodium 139 Potassium 3.7 Chloride 104.4 Carbon Dioxide 23 Anion Gap 15 BUN 8 Creatinine 0.9 Estimated GFR > 60 BUN/Creatinine Ratio 9 Glucose 79 Calcium 9.3 Total Bilirubin 0.40 AST 17 ALT 13 Alkaline Phosphatase 66 Total Protein 7.4 Albumin 4.7 Albumin/Globulin Ratio 1.7 Urine Color Colorless Urine Turbidity Slightly cloudy Urine pH 5.0 Ur Specific [place] 1.010 Urine Protein <15 mg/dl Urine Glucose (UA) M Urine Ketones Negative Urine Blood Negative Urine Nitrite Negative Ur Reducing Substances Not Reportable Urine Bilirubin Negative Urine Ictotest Not Reportable Urine Urobilinogen < 2.0 Ur Leukocyte Esterase Negative Urine WBC (Auto) 1.0 Urine RBC (Auto) 1.0 U Epithel Cells (Auto) 2.0 Urine Bacteria (Auto) 1+ Urine HCG, Qual Negative - Medical Decision Making 41-year-old female with no significant medical history presents with left flank pain pelvic pain. Patient reports pain started in her left lower back radiates to the left flank area in her pelvic area since Sunday. Progressively gotten worse without improvement. Symptoms associated with nausea, no vomiting, no dysuria, no vaginal discharge, no fever or chills. She denies being , Pain is does not radiate to herextremities her upper back, no upper abdominal pain, no vomiting, no sick contacts or recent travel. Patient has been ambulating steadily without guarding, no fever, has not had any vomiting episodes throughout ED, her labs are all reassuring including her white count, lipase, urine, negative for nitrates negative for leukocytes, no vaginal discharge, no abdominal tenderness on reevaluation, discharge home with supportive therapy, and GI referral. Encouraged her to continue taking her Linzess, and omeprazole, I prescribed some Levsin Zofran and naproxen as needed. At time of discharge patient is stable nontoxic-appearing and ambulates steadily out of the emergency room. Critical care attestation.: If time is entered above; I have spent that time in minutes in the direct care of this critically ill patient, excluding procedure time. ED Disposition Clinical Impression: Pelvic pain, Flank pain, History of uterine fibroid Disposition: 01 HOME / SELF CARE / HOMELESS Is pt being admited?: No Does the pt Need Aspirin: No Condition: Stable Instructions: Pelvic Pain, Female, [id number], Flank Pain, Adult, Abdominal Pain (ED) Prescriptions: Hyoscyamine Subl [Levsin Sl 0.125 TAB] 0.125 mg SL Q6HR PRN #20 tab PRN Reason: Colic Naproxen Sodium [Naproxen Sodium 550mg] 550 mg PO BID PRN #20 PRN Reason: Pain , Severe (7-10) Ondansetron [Zofran Odt] 4 mg PO Q8HR PRN #12 tab.rapdis PRN Reason: Nausea And Vomiting Referrals: PRIMARY CARE, [Primary Care Provider] - 3-5 Days NAIN PRETTY MD [Staff Physician] - 3-5 Days
[2022-07-03 16:34] LABS: Basophils % (Auto) 0.4 % (0.0-1.8); Eosinophils # (Auto) 0.1 K/mm3 (0.0-0.4); Hematocrit 41.4 % (30.3-42.9); Hemoglobin 13.5 gm/dl (10.1-14.3); Lymphocytes # (Auto) 1.6 K/mm3 (1.2-5.4); Lymphocytes % (Auto) 28.8 % (13.4-35.0); Mean Corpuscular HGB Conc 33 % (30-34); Mean Corpuscular Volume 91 fl (79-97); Monocytes # (Auto) 0.3 K/mm3 (0.0-0.8); Monocytes % (Auto) 5.3 % (0.0-7.3); Platelet Count 295 K/mm3 (140-440); Red Blood Count 4.54 M/mm3 (3.65-5.03); Red Cell Distribution Width 19.1 % (13.2-15.2)
[2022-07-03] MEDS ORDERED: KETOROLAC 10 MG TAB PO ONE (17:42)
[2022-07-03] MEDS ORDERED: ONDANSETRON 4 MG ODT TAB PO ONE (17:42)
[2022-07-03] MEDS ORDERED: HYDROcodone/ACETAMINOPHEN 5-325 MG TAB PO ONE (17:42)
[2022-07-03 18:27] VITALS: BP 121/87
== END 2022-07-03 18:33 | disposition home or self-care (01) ==
LOC: ED 13:50
DX: R10.32 Left lower quadrant pain (principal); R10.2 Pelvic and perineal pain; D25.9 Leiomyoma of uterus, unspecified; K21.9 Gastro-esophageal reflux disease without esophagitis; M19.90 Unspecified osteoarthritis, unspecified site; Z91.013 Allergy to seafood; Z88.0 Allergy status to penicillin; Z91.040 Latex allergy status
CPT/HCPCS: 36415; 80053; 81001; 81025; 85025; 99283; J3490; Q0162